=== PATIENT | male | born 1960 | race Two or more races ===

== ENCOUNTER 2017-12-21 00:42 | Emergency (ER) | payer OTHER, SELFPAY ==
[~2017-12-21] VITALS: Ht 172.7 cm; Wt 84.1 kg
[2017-12-21] MEDS ORDERED: THIAMINE 100MG TABLET ONE (01:16)
[2017-12-21] MEDS ORDERED: THIAMINE 100MG TABLET PO ONE (01:30)
[2017-12-21 05:21] VITALS: BP 112/67
== END 2017-12-21 05:24 | disposition home or self-care (01) ==
LOC: ED 05:18
DX: F10.229 Alcohol dependence with intoxication, unspecified (principal); E11.9 Type 2 diabetes mellitus without complications
CPT/HCPCS: 82962; 99282